=== PATIENT | female | born 1980 | race Two or more races ===

== ENCOUNTER 2021-11-22 14:15 | Inpatient (IN) | payer OTHER ==
[~2021-11-22] VITALS: Ht 165.1 cm; Wt 97.5 kg
[2021-12-12] MEDS ORDERED: PRENATABS RX T1 EACH PO (09:01)
== END 2021-12-14 13:27 | disposition home or self-care (01) | DRG 788 ==
LOC: OB/GYN 12-05 14:15 → LDR 12-12 08:18 → OB/GYN 12-12 17:30
PROVIDERS: ADMIT Obstetrics & Gynecology; ATTEND Obstetrics & Gynecology
PROC: 0UB90ZZ Excision of Uterus, Open Approach (ICD-10-PCS; 2021-12-12)
PROC: 4A1HXCZ Monitoring of Products of Conception, Cardiac Rate, External Approach (ICD-10-PCS; 2021-12-12)
PROC: 10D00Z1 Extraction of Products of Conception, Low, Open Approach (ICD-10-PCS; principal; 2021-12-12 16:00)
DX: O62.1 Secondary uterine inertia (principal); O36.8130 Decreased fetal movements, third trimester, not applicable or unspecified; Z3A.40 40 weeks gestation of pregnancy; Z37.0 Single live birth; Z20.822 Contact with and (suspected) exposure to COVID-19